=== PATIENT | male | born 2005 | race African-American/Black ===

== ENCOUNTER 2024-08-22 23:42 | Emergency (ER) | payer SELFPAY ==
[~2024-08-22] VITALS: Ht 160 cm; Wt 50.0 kg
[2024-08-22 23:50] VITALS: O2SAT 100
[2024-08-22 23:58] VITALS: BP 105/64; PULSE 72; RESP 16; TEMP 98.3; O2SAT 98
== END 2024-08-23 00:39 | disposition home or self-care (01) ==
LOC: ER 08-23 00:35
DX: Z43.3 Encounter for attention to colostomy (principal); I10 Essential (primary) hypertension
CPT/HCPCS: 99281

== ENCOUNTER 2025-01-31 00:56 | Emergency (ER) | payer OTHER ==
[~2025-01-31] VITALS: Ht 165.1 cm; Wt 69.0 kg
[~2025-01-31 00:56] MED LIST: AMOX1TAB16 MT; IBUP-2030 MT; METH4TAB95 MT
[2025-01-31 01:32] VITALS: TEMP 36.8; O2SAT 99
[2025-01-31 02:17] LABS: BASOPHILS % 0.5 % (0.0-2.0); EOSINOPHILS % 4.9 % (0.0-5.0); HEMATOCRIT. 32.5 % (42.0-52.0); HEMOGLOBIN. 10.5 g/dL (14.0-18.0); LYMPHOCYTES % 33.8 % (20.0-50.0); MEAN CORPUSCULAR HEMOGLOBIN 29.1 pg (28.0-32.0); MEAN CORPUSCULAR HGB CONC 32.2 g/dL (31.0-37.0); MEAN CORPUSCULAR VOLUME 90.2 fL (80.0-94.0); MEAN PLATELET VOLUME 7.9 fl (7.4-10.4); MONOCYTES % 7.4 % (2.0-8.0); NEUTROPHILS % 53.4 % (40.0-76.0); PLATELET 236 x1000/uL (130-400); RED CELL DISTRIBUTION WIDTH 15.4 % (11.6-14.6); WHITE BLOOD COUNT 4.6 x1000/uL (4.5-11.0)
[2025-01-31 02:22] LABS: CARBON DIOXIDE 25 mEq/L (21-32); CHLORIDE 109 mEq/L (98-107); SODIUM 143 mEq/L (136-145)
[2025-01-31 02:23] LABS: CALCIUM 9.1 mg/dL (8.7-10.4)
[2025-01-31 02:28] LABS: CREATININE 0.9 mg/dL (0.6-1.3); GLUCOSE 79 mg/dL (70-105); UREA NITROGEN BLOOD 11 mg/dL (9-23)
[2025-01-31 02:29] LABS: ALANINE AMINOTRANSFERASE 13 IU/L (10-49); ALBUMIN 3.9 g/dL (3.2-4.8); ASPARTATE AMINOTRANSFERASE 28 IU/L (<34)
[2025-01-31 02:30] LABS: BILIRUBIN TOTAL 0.2 mg/dL (0.1-1.0); PROTEIN TOTAL 9.1 g/dL (6.0-8.3)
[2025-01-31 03:31] LABS: CLARITY URINE CLOUDY (CLEAR); COLOR URINE YELLOW (YELLOW); GLUCOSE URINE NEGATIVE (NEGATIVE); KETONES URINE TRACE (NEGATIVE); LEUKOCYTE ESTERASE URINE NEGATIVE (NEGATIVE); NITRITE URINE NEGATIVE (NEGATIVE); OCCULT BLOOD URINE TRACE (NEGATIVE); PROTEIN URINE NEGATIVE (NEGATIVE); SPECIFIC GRAVITY URINE 1.019 (1.005-1.030); UROBILINOGEN URINE 0.2 E.U./dL (0.2-1.0)
[2025-01-31 05:49] VITALS: BP 111/66; PULSE 84; RESP 20; O2SAT 99
[2025-01-31 06:17] LABS: BACTERIA URINE NONE SEEN; RBC URINE 0-2 /hpf (0-2); SQUAMOUS EPITHELIAL CELL URINE FEW /lpf (RARE/1+)
== END 2025-01-31 06:48 | disposition left against medical advice (07) ==
LOC: ER 00:56
DX: H66.92 Otitis media, unspecified, left ear (principal); Z93.3 Colostomy status; R10.30 Lower abdominal pain, unspecified; Z88.6 Allergy status to analgesic agent; Z88.8 Allergy status to other drugs, medicaments and biological substances
CPT/HCPCS: 36415; 74176; 80053; 81003; 85025; 99284